=== PATIENT | female | born 1990 | race Hispanic/Latino ===

== ENCOUNTER 2022-02-16 16:22 | Outpatient (CLI) | payer OTHER | END 2022-02-16 16:23 | disposition home or self-care (01) | LOC: CSHMRI 16:22 | PROVIDERS: ATTEND Radiology Radiation Oncology | DX: C79.31 Secondary malignant neoplasm of brain (principal); C50.919 Malignant neoplasm of unspecified site of unspecified female breast | CPT/HCPCS: 70553 ==

== ENCOUNTER 2022-06-20 13:34 | Outpatient (CLI) | payer OTHER ==
[2022-06-20] MEDS ORDERED: Magnevist 469MG/ML 20 ML VIAL ONE (14:31)
== END 2022-06-20 13:35 | disposition home or self-care (01) ==
LOC: CSHMRI 13:34
PROVIDERS: ATTEND Radiology Radiation Oncology
DX: C79.31 Secondary malignant neoplasm of brain (principal); Z92.3 Personal history of irradiation; C50.919 Malignant neoplasm of unspecified site of unspecified female breast
CPT/HCPCS: 70553; A9579

== ENCOUNTER 2025-05-01 13:03 | Outpatient (CLI) | payer MEDICARE | END 2025-05-01 13:04 | disposition home or self-care (01) | LOC: CSHULT 13:03 | PROVIDERS: ATTEND Internal Medicine Hematology & Oncology | DX: C50.511 Malignant neoplasm of lower-outer quadrant of right female breast (principal); E83.52 Hypercalcemia; D35.2 Benign neoplasm of pituitary gland; Z79.899 Other long term (current) drug therapy | CPT/HCPCS: 93306 ==